=== PATIENT | male | born 1995 | race Caucasian/White ===

== ENCOUNTER 2019-07-13 06:31 | Emergency (ER) | payer OTHER ==
[~2019-07-13] VITALS: Ht 182.9 cm; Wt 126.6 kg
[2019-07-13 06:36] VITALS: BP 122/74
[2019-07-13] MEDS ORDERED: acetaminophen 325mg tablet PO ONE (06:55)
[2019-07-13] MEDS ORDERED: HYDR-3965 PO (07:06)
== END 2019-07-13 07:34 | disposition home or self-care (01) ==
LOC: ER 06:31
DX: M25.532 Pain in left wrist (principal); Z79.899 Other long term (current) drug therapy; Z60.2 Problems related to living alone; W01.0XXA Fall on same level from slipping, tripping and stumbling without subsequent striking against object, initial encounter; Y93.89 Activity, other specified; Y92.89 Other specified places as the place of occurrence of the external cause; Y99.8 Other external cause status
CPT/HCPCS: 29125; 73110; 99283

== ENCOUNTER 2019-07-24 19:42 | Emergency (ER) | payer BC, OTHER ==
[~2019-07-24] VITALS: Ht 182.9 cm; Wt 125.0 kg
[~2019-07-24 19:42] MED LIST: HYDR-3965 PO
[2019-07-24] MEDS ORDERED: IBUP-1984 PO (21:27)
[2019-07-24 22:07] VITALS: BP 153/84
== END 2019-07-24 22:05 | disposition home or self-care (01) ==
LOC: ER 19:43
DX: S82.891A Other fracture of right lower leg, initial encounter for closed fracture (principal); Z60.2 Problems related to living alone; Z79.899 Other long term (current) drug therapy; X50.1XXA Overexertion from prolonged static or awkward postures, initial encounter; Y93.89 Activity, other specified; Y92.89 Other specified places as the place of occurrence of the external cause; Y99.8 Other external cause status
CPT/HCPCS: 73610; 99284